=== PATIENT | male | born 1990 | race Caucasian/White ===

== ENCOUNTER 2018-02-24 19:20 | Emergency (ER) | payer MEDICAID ==
[~2018-02-24] VITALS: Ht 165.1 cm; Wt 90.7 kg
[2018-02-24 19:25] VITALS: BP 125/84; Ht 165.1 cm; Wt 90.7 kg
== END 2018-02-24 19:49 | disposition other institution (70) ==
LOC: ED 19:20
DX: Z02.89 Encounter for other administrative examinations (principal)
CPT/HCPCS: 82962